=== PATIENT | male | born 1985 | race Two or more races ===

== ENCOUNTER 2018-08-25 00:34 | Emergency (ER) | payer SELFPAY ==
[2018-08-25 01:01] VITALS: O2SAT 100
[2018-08-25 02:21] LABS: BASO # 0.1 K/uL (0.0-0.2); BASO % 0.8 % (0.0-2.0); EOS # 0.1 K/uL (0.0-0.7); EOS % 2.1 % (0.0-4.0); HEMOGLOBIN 14.3 g/dL (12.0-18.0); LYMPH # 2.5 K/uL (1.0-4.3); MEAN CELL VOLUME 94.6 fl (80.0-94.0); MEAN CORPUSCULAR HGB CONC 34.9 g/dL (33.0-37.0); MEAN PLATELET VOLUME 7.6 fl (7.2-11.7); MONO # 0.5 K/uL (0.0-0.8); MONO % 7.8 % (0.0-10.0); NEUT # 3.2 K/uL (1.8-7.0); NEUT % 50.3 % (50.0-75.0); RBC 4.32 Mil/uL (4.40-5.90); WHITE BLOOD COUNT 6.4 K/uL (4.8-10.8)
[2018-08-25 02:29] LABS: BLOOD UREA NITROGEN 12 mg/dl (9-20); CALCIUM 9.9 mg/dL (8.4-10.2); GFR NON-AFRICAN AMERICAN > 60
[2018-08-25 02:38] LABS: ACETAMINOPHEN < 10.0 ug/ml (10.0-30.0); SALICYLATE < 1.0 mg/dl
--- NOTE | 2018-08-25 03:17 | ED PDOC ---
HPI: Psych/Substance Abuse Time Seen by Provider: 08/25/18 01:00 Chief Complaint (Nursing): Alcohol Ingestion Chief Complaint (Provider): Alcohol Ingestion History Per: Patient, EMS History/Exam Limitations: intoxication, other (uncooperative) Onset/Duration Of Symptoms: Mins (sea captain) Current Symptoms Are (Timing): Still Present Additional Complaint(s): 32 year old male with hx of bipolar disorder and alcohol abuse presents to the ED via EMS after they found him intoxicated and asleep in the streets. Patient reports being off of his bipolar meds because he does not like the way they make him feel, and admits to self medicating today with alcohol and other drugs which he will not disclose. Patient cannot provide additional information about being found by EMS secondary to his intoxication and being uncooperative. At this time, he states he is suicidal, but has no homicidal ideation. PMD: none provided Past Medical History Reviewed: Historical Data, Nursing Documentation, Vital Signs Vital Signs: Last Vital Signs Temp 98.0 F 08/25/18 00:58 Pulse 100 H 08/25/18 00:58 Resp 18 08/25/18 00:58 BP 152/85 H 08/25/18 00:58 Pulse Ox 100 08/25/18 00:58 - Medical History PMH: Bipolar Disorder - Family History Family History: States: Unknown Family Hx - Social History Alcohol: Other (hx abuse) Drugs: Other (admits to use, but will not disclose) - Allergies Allergies/Adverse Reactions: Allergies Allergy/AdvReac Type Severity Reaction Status Date / Time Unobtainable Allergy Verified 08/25/18 00:58 Review of Systems ROS Statement: Except As Marked, All Systems Reviewed And Found Negative Psych: Positive for: Suicidal ideation (but no homicidal ideation), Other (alcohol intoxication + use of other unknown drug) Physical Exam - Reviewed Nursing Documentation Reviewed: Yes Vital Signs Reviewed: Yes - Physical Exam Appears: Positive for: In Acute Distress (tearful, uncooperative, intoxicated appearing, disheveled) Head Exam: Positive for: ATRAUMATIC Skin: Positive for: Normal Color. Negative for: Rash Eye Exam: Positive for: Normal appearance Neck: Positive for: Normal, Painless ROM Cardiovascular/Chest: Positive for: Regular Rate, Rhythm Respiratory: Positive for: Normal Breath Sounds. Negative for: Respiratory Distress Gastrointestinal/Abdominal: Positive for: Normal Exam, Soft. Negative for: Tenderness Extremity: Positive for: Normal ROM Neurologic/Psych: Positive for: Alert. Negative for: Oriented (orientation cannot be assessed due to pt not participating) - Laboratory Results Result Diagrams: 08/25/18 02:10 08/25/18 02:10 - ECG O2 Sat by Pulse Oximetry: 100 (RA) Pulse Ox Interpretation: Normal Medical Decision Making Medical Decision Making: A/P: pt with hx of alcohol abuse and bipolar disorder presenting with alcohol intoxication and possible co-ingestion --monitor for sobriety --order crisis evaluation Time: 012 Initial Plan: --Acetaminophen chemistry --Alcohol serum --BMP --Drug screen --Salicylate chemistry --CBC with differential --Ativan 2mg IM --Haldol 5mg IM --1:1 observation --4-point restraints ordered for safety of pt and ED staff --Urinalysis --Reevaluation 0300 Patient asleep, on monitor 0700 Patient still asleep, will endorse to Dr. Red pending sobriety and re-eval for suicidal ideation and potential crisis eval. ------ Scribe Attestation: Documented by Krupa Sesay, acting as a scribe for Mike Alfaro MD. Provider Scribe Attestation: All medical record entries made by the Scribe were at my direction and personally dictated by me. I have reviewed the chart and agree that the record accurately reflects my personal performance of the history, physical exam, medical decision making, and the department course for this patient. I have also personally directed, reviewed, and agree with the discharge instructions and disposition. Disposition - Clinical Impression Clinical Impression: Alcohol abuse - Patient ED Disposition Is Patient to be Admitted: Transfer of Care - Disposition Disposition: Transfer of Care Disposition Time: 07:00 Condition: STABLE Forms: [employer] ([place]) Patient Signed Over To: Teofilo,Arvin III Handoff Comments: pending sobriety and re-eval for potential SI
--- NOTE | 2018-08-25 07:09 | ED PDOC ---
- Laboratory Results Result Diagrams: 08/25/18 02:10 08/25/18 02:10 - ECG O2 Sat by Pulse Oximetry: 100 (RA) Medical Decision Making Medical Decision Making: recd at 7am pending sobriety and crisis eval, required relief of agitation with medication, etoh [id number] awake, alert, ambulating stable gait. DC from ED. Disposition Counseled Patient/Family Regarding: Studies Performed - Clinical Impression Clinical Impression: Alcohol abuse - POA Present On Arrival: None - Disposition Disposition: Routine/Home Disposition Time: 11:03 Condition: STABLE Instructions: Alcohol Abuse and Alcoholism (DC) Forms: [employer] (Telugu)
[2018-08-25 11:07] LABS: BARBITURATES, UR NEGATIVE (NEGATIVE); BENZODIAZEPINES, UR NEGATIVE (NEGATIVE); OPIATES, UR NEGATIVE (NEGATIVE); PHENCYCLIDINE, UR NEGATIVE (NEGATIVE); SQUAMOUS EPITHIAL 1 /hpf (0-5); URINE BILIRUBIN NEGATIVE (NEGATIVE); URINE BLOOD NEGATIVE (NEGATIVE); URINE CLARITY SLIGHTY-CLOUDY (Clear); URINE COLOR YELLOW (YELLOW); URINE GLUCOSE (UA) NEG (Normal); URINE HYALINE CAST >20 /hpf (0-2); URINE LEUKOCYTE ESTERASE NEG Leu/uL (Negative); URINE PROTEIN NEGATIVE (NEGATIVE); URINE UROBILINOGEN 0.2-1.0 mg/dL (0.2-1.0)
[2018-08-25 11:14] VITALS: BP 111/67; PULSE 86; RESP 17; TEMP 98.4
== END 2018-08-25 11:10 | disposition home or self-care (01) ==
LOC: H.ER 00:34
DX: F10.129 Alcohol abuse with intoxication, unspecified (principal); F31.9 Bipolar disorder, unspecified
CPT/HCPCS: 80048; 81003; 82948; 85025; 96372; 99285; G0480; J1630; J2060